=== PATIENT | female | born 1945 | race Caucasian/White ===

== ENCOUNTER 2017-01-15 05:46 | Day surgery (SDC) | payer MEDICARE, BC ==
[2017-01-15] MEDS ORDERED: Dextrose 5%-Lactated Ringers 1,000 ML IV SCH (06:15)
[2017-01-15] MEDS ORDERED: Meropenem 500 MG in Sodium Chloride 0.9% 50 ML IV ONE (07:00)
[2017-01-15] MEDS ORDERED: fentaNYL 100 MCG/2 ML SDV ONE (07:08)
[2017-01-15] MEDS ORDERED: Propofol 200 MG/20 ML SDV ONE ×2 (07:08→07:51)
[2017-01-15] MEDS ORDERED: Midazolam 1 MG/ML 2 ML SDV ONE (07:08)
[2017-01-15 08:54] VITALS: BP 152/77
--- NOTE | 2017-01-19 07:57 | OR ---
DATE OF PROCEDURE: 01/15/2017 PREOPERATIVE DIAGNOSES: 1. Dysphagia, status post gastric bypass. 2. History of colon polyps. POSTOPERATIVE DIAGNOSES: 1. Dysphagia, status post gastric bypass with mild pouch gastritis and suture located at gastrojejunostomy (no stricture or narrowing noted in the area of the distal esophagus or gastrojejunostomy). 2. No recurrent colonic polyps. PROCEDURES: 1. Upper GI endoscopy with:. a. Biopsies of pouch for CLOtest (12210). b. Removal of foreign body (suture) (67120). 2. Flexible colonoscopy. ANESTHESIA: IV sedation. INDICATION FOR PROCEDURE: This is a 71-year-old female presenting for followup colonoscopy. She had numerous polyps removed about a year ago. She also was complaining of some dysphagia in the lower chest area. She is status post gastric bypass. Plan is to proceed with upper GI endoscopy with biopsies and/or dilation, as well as flexible colonoscopy with biopsies or polypectomy as indicated. Potential risks of the procedure, including bleeding and perforation, were discussed, and the patient wishes to proceed. DETAILS OF PROCEDURE: The patient was taken to the operating room and placed in a left lateral decubitus position. IV sedation was administered, after which the upper GI endoscope was passed orally through the length of the esophagus, into the gastric pouch, and from there, through the gastrojejunostomy roughly 20 cm into the Kyle limb. The esophagus and EG junction areas were unremarkable. There is no stricturing of the esophagus and no significant inflammation at the EG junction. The gastric pouch was likewise unremarkable. There was a single old suture eroded through at the gastrojejunostomy, but there was no narrowing or stricturing at any point during the examination. Visualized portion of the Kyle limb was unremarkable. At this point, biopsies were obtained from the gastric pouch and sent for CLOtest for H. pylori, and the suture was then cut and removed in its entirety. The upper GI endoscope was withdrawn with removal of the suture. Attention was then taken to the colonoscopy. Initial digital rectal exam was performed and was unremarkable. Colonoscope was then passed with retroflexion, revealing uncomplicated hemorrhoidal columns. The scope was eventually passed to the cecum. The prep was fair. There was a moderate amount of liquid stool present, which would potentially obscure some small lesions, otherwise no abnormalities were noted. The scope was then withdrawn, the above findings reconfirmed, and the procedure then concluded. PLAN: The plan will be to have the patient to see ANYA Orta, regarding her congestion symptoms. It would appear, by history, some of the dysphagia may be referable to some mucous plugging of the esophagus related to upper respiratory congestion. Otherwise, she will be instructed to eat a little bit more slowly. She is to take some liquids at times. Otherwise, the flexible colonoscopy should be repeated in 5 years. Primo Coffey MD /[id number]
== END 2017-01-15 09:04 | disposition home or self-care (01) ==
LOC: JP.SDS 05:46
PROVIDERS: ATTEND Surgery
DX: Z12.11 Encounter for screening for malignant neoplasm of colon (principal); K29.70 Gastritis, unspecified, without bleeding; Z88.1 Allergy status to other antibiotic agents; Z88.8 Allergy status to other drugs, medicaments and biological substances; Z98.84 Bariatric surgery status; F32.9 Major depressive disorder, single episode, unspecified; K21.9 Gastro-esophageal reflux disease without esophagitis
CPT/HCPCS: 43239; 43247; 87081; G0105; J2185; J2250; J2704; J3010; J7042; J7050

== ENCOUNTER 2018-04-16 12:52 | Emergency (ER) | payer MEDICARE, OTHER ==
[2018-04-16] MEDS ORDERED: Sodium Chloride 0.9% 10 ML Syringe FLUSH PRN (14:08)
[2018-04-16] MEDS ORDERED: cefTRIAXone 2 GM in Sodium Chloride 0.9% 50 ML IV ONE (14:21)
--- NOTE | 2018-04-16 14:29 | EDM.PDOC ---
ED HPI GENERAL MEDICAL PROBLEM - General Chief Complaint: Skin Complaint Stated Complaint: SEEN IN CLINIC YESTERDAY,TOLD TO COME IN IF WORSE Time Seen by Provider: 04/16/18 13:25 Source of Information: Reports: Patient History Limitations: Reports: No Limitations - History of Present Illness INITIAL COMMENTS - FREE TEXT/NARRATIVE: Rosario presents today for complaints of worsening cellulitis to right upper anterior thigh. She reports she was at [facility] yesterday for are of her right anterior thigh with redness that had worsened the previous day. She was given sulfa and has taken two doses as directed. - Related Data Allergies Allergy/AdvReac Type Severity Reaction Status Date / Time Cephalosporins Allergy Cannot Verified 04/16/18 13:15 Remember clindamycin Allergy Cannot Verified 04/16/18 13:15 Remember hydromorphone HCl AdvReac Hallucinati Verified 04/16/18 13:15 [From Dilaudid] ons Home Meds: Home Meds Aspirin [Ecotrin] 1 mg PO DAILY 01/15/16 [History] Cholecalciferol (Vitamin D3) [Vitamin D] 1 cap PO DAILY 01/15/16 [History] Citalopram Hydrobromide [Citalopram HBr] 10 mg PO DAILY 01/15/16 [History] Cyanocobalamin (Vitamin B-12) [Cyanocobalamin Injection] 1 ml IM Q21D 01/15/16 [ History] Iron,Carbonyl/Ascorbic Acid [Vitron-C Tablet] 1 tab PO BID 01/15/16 [History] Multivitamin [Multi-Vitamin Daily] 1 tab PO BID 01/15/16 [History] Omeprazole [Prilosec] 20 mg PO DAILY 01/15/16 [History] Sennosides [Senokot] 2 tab PO QPM 01/15/16 [History] Thiamine [Vitamin B-1] 100 mg PO DAILY 01/15/16 [History] Azelastine [Optivar 0.05% Ophth Soln] 1 drop EYEBOTH BID 01/13/17 [History] B1/B2/Niacin/B12/Protease [B-Complex with B-12 Tablet] 1 each PO BID 01/13/17 [ History] Calcium Carb/Vitamin D3/Vit K1 [Calcium + Vit D & K Chew] 1 each PO TID [History] Sulfamethoxazole/Trimethoprim [Sulfamethoxazole-Tmp Ds Tablet] 1 tab PO BID [History] Past Medical History HEENT History: Reports: Impaired Vision Other HEENT History: wears glasses Gastrointestinal History: Reports: Bowel Obstruction, Colon Polyp, GERD, Hiatal Hernia Genitourinary History: Reports: None 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: Dysfunctional Uterine Bleeding, Musculoskeletal History: Reports: Osteoarthritis Other Musculoskeletal History: Osteomyelitis upper back Neurological History: Reports: None Psychiatric History: Reports: Depression Endocrine/Metabolic History: Reports: Obesity/BMI 30+, Osteopenia Hematologic History: Reports: Anemia, Blood Transfusion(s), Iron Deficiency - Infectious Disease History Infectious Disease History: Reports: Chicken Pox, Shingles - Past Surgical History GI Surgical History: Reports: Bariatric Procedure, Colonoscopy, EGD, Esophageal Dilatation, Cecil Fundoplication, Polypectomy Female Surgical History: Reports: Hysterectomy Endocrine Surgical History: Reports: None Neurological Surgical History: Reports: Discectomy Social & Family History - Tobacco Use Smoking Status *Q: Never Smoker - Caffeine Use Caffeine Use: Reports: None - Recreational Drug Use Recreational Drug Use: No ED ROS GENERAL - Review of Systems Review Of Systems: See Below Constitutional: Denies: Fever, Chills, Malaise, Weakness HEENT: Reports: No Symptoms Respiratory: Reports: No Symptoms Cardiovascular: Reports: No Symptoms Endocrine: Reports: No Symptoms GI/Abdominal: Reports: No Symptoms : Reports: No Symptoms Musculoskeletal: Reports: Other (Mild pain to area of cellulitis of right upper thigh. ) Skin: Reports: Erythema, Other (cellulitis right anterior thigh, area of redness well demarcated and marked by clinic measuring 7cm x 13 cm oval shaped. Area of new redness larger. ) Neurological: Reports: No Symptoms Psychiatric: Reports: No Symptoms Hematologic/Lymphatic: Reports: No Symptoms Immunologic: Reports: No Symptoms ED EXAM, SKIN/RASH Exam: See Below Text/Narrative:: Rosario is an alert and oriented 72 year old female presenting with complaints of worsening redness/cellulitis of the right anterior thigh since yesterday. She reports two days ago she noticed an area that looked like a bug bite to her thigh. She states the area was white then became red around it and spread. She states she went to the clinic, they marked the area and she started taking sulfa. She has a history of allergy to cephalosporins and clindamycin dated back to hospitalization with osteomyelitis in 2003. Exam Limited By: No Limitations General Appearance: Alert, WD/WN, No Apparent Distress Eye Exam: Bilateral Eye: EOMI, Normal Inspection, PERRL Ears: Normal External Exam, Normal Canal, Hearing Grossly Normal, Normal TMs Throat/Mouth: Normal Inspection, Normal Lips, Normal Gums, Normal Oropharynx, Normal Voice, No Airway Compromise Head: Atraumatic, Normocephalic Neck: Normal Inspection, Supple, Non-Tender, Full Range of Motion. No: Lymphadenopathy (R), Lymphadenopathy (L) Respiratory/Chest: No Respiratory Distress, Lungs Clear, Normal Breath Sounds, No Accessory Muscle Use, Chest Non-Tender Cardiovascular: Normal Peripheral Pulses, Regular Rate, Rhythm, No Edema, No Murmur, No Rub Peripheral Pulses: 2+: Radial (L), Radial (R), Dorsalis Pedis (L), Dorsalis Pedis (R) Back Exam: Normal Inspection, Full Range of Motion. No: CVA Tenderness (R), CVA Tenderness (L) Extremities: Normal Range of Motion, No Pedal Edema, Normal Capillary Refill, Increased Warmth, Redness, Other (Right anterior thigh has increased warmth, erythema measuring 11cm x 18cm which has increased from yesterday at 7cm x 13cm. No fluctuance noted or drainable fluid collections. Tenderness with palpation. Full ROM to lower extremities. ) Neurological: Alert, Oriented, CN II-XII Intact, Normal Cognition, Normal Gait, No Motor/Sensory Deficits Psychiatric: Normal Affect, Normal Mood Skin: Dry, Erythema, Increased Warmth, Other (As described above) Location, Skin: Lower Extremity, Right Characteristics: Erythematous, Other (Well demarcated area to right anterior thigh as described above. ) Associated features: Warmth, Tenderness, Swelling, Inflammation. No: Induration , Scaling, Crusting, Weeping Lymphatic: No Adenopathy Course - Vital Signs Last Recorded V/S: Last Vital Signs Temp 37.4 C 04/16/18 15:56 Pulse 75 04/16/18 15:56 Resp 16 04/16/18 15:56 BP 155/74 H 04/16/18 15:56 Pulse Ox 94 L 04/16/18 15:56 - Orders/Labs/Meds Orders: Active Orders 24 hr Category Date Time Status Sodium Chloride 0.9% [Normal Saline] 1,000 ml Med 04/16/18 14:45 Active IV ASDIRECTED Sodium Chloride 0.9% [Saline Flush] Med 04/16/18 14:08 Active 10 ml FLUSH ASDIRECTED PRN Saline Lock Insert [OM.PC] Routine Oth 04/16/18 14:08 Ordered Medication Orders Sodium Chloride (Normal Saline) 1,000 mls @ 1,000 mls/hr IV ASDIRECTED ALYSSA Last Admin: 04/16/18 15:05 Dose: 1,000 mls/hr Sodium Chloride (Saline Flush) 10 ml FLUSH ASDIRECTED PRN PRN Reason: Keep Vein Open Last Admin: 04/16/18 15:05 Dose: 10 ml Labs: Laboratory Tests 04/16/18 04/16/18 Range/Units 13:50 13:50 WBC 8.2 (4.5-11.0) K/uL RBC 4.55 (3.30-5.50) M/uL Hgb 12.9 (12.0-15.0) g/dL Hct 40.8 (36.0-48.0) % MCV 90 (80-98) fL MCH 28 (27-31) pg MCHC 32 (32-36) % Plt Count 233 (150-400) K/uL Neut % (Auto) 76 H (36-66) % Lymph % (Auto) 15 L (24-44) % [place] % (Auto) 9 H (2-6) % Eos % (Auto) 0 L (2-4) % Baso % (Auto) 0 (0-1) % Sodium 133 L (140-148) mmol/L Potassium 4.2 (3.6-5.2) mmol/L Chloride 97 L (100-108) mmol/L Carbon Dioxide 28 (21-32) mmol/L Anion Gap 12.2 (5.0-14.0) mmol/L BUN 16 (7-18) mg/dL Creatinine 1.2 H (0.6-1.0) mg/dL Est Cr Clr Drug Dosing TNP Estimated GFR (MDRD) 44 L (>60) Glucose 96 (74-106) mg/dL Calcium 9.0 (8.5-10.1) mg/dL C-Reactive Protein 6.62 H (0.0-0.3) mg/dL Patient lab work reviewed with Dr. Mcintosh. She is in agreement with plan. Rosario will be given rocephin 2gm IV, Normal Saline 1000ml IV in the emergency room. She will return to the emergency room tomorrow for a recheck. Patient in agreement with plan. Meds: Medications Generic Name Dose Route Start Last Admin Trade Name Freq PRN Reason Stop Dose Admin Sodium Chloride 1,000 mls @ 1,000 mls/hr 04/16/18 14:45 04/16/18 15:05 Normal Saline IV 1,000 mls/hr ASDIRECTED ALYSSA Administration Sodium Chloride 10 ml 04/16/18 14:08 04/16/18 15:05 Saline Flush FLUSH 10 ml ASDIRECTED PRN Administration Keep Vein Open Discontinued Medications Generic Name Dose Route Start Last Admin Trade Name Freq PRN Reason Stop Dose Admin Ceftriaxone Sodium 2 gm/ 50 mls @ 100 mls/hr 04/16/18 14:21 04/16/18 15:05 Sodium Chloride IV 04/16/18 14:50 100 mls/hr ONETIME ONE Administration Departure - Departure Time of Disposition: 16:12 Disposition: Home, Self-Care 01 Condition: Fair Clinical Impression: Cellulitis - Discharge Information *PRESCRIPTION DRUG MONITORING PROGRAM REVIEWED*: Not Applicable *COPY OF PRESCRIPTION DRUG MONITORING REPORT IN PATIENT THUY: Not Applicable Instructions: Cellulitis, Adult Referrals: Raymundo Dillon PA [Primary Care Provider] - Forms: ED Department Discharge Additional Instructions: You have been evaluated and treated for worsening of right anterior thigh cellulitis. You were given rocephin 2 grams IV and normal saline 1000ml IV while in the emergency room. Continue your sulfa antibiotic as directed. Add an additional antibiotic Augmentin 875mg by mouth twice a day for 10 days. Florajen probiotic would also benefit your digestive system. These have both been telephoned to your pharmacy of choice [facility] in [place]. You may use hot packs to the area as directed. Cellulitis care as discussed. Your basic metabolic panel showed decline in renal function and dehydration - this will need follow up with your primary provider in the next 7 days. Work on keeping yourself well hydrated. Return tomorrow for a recheck with Dr. Mcintosh of your cellulitis and any additional IV antibiotics, labs or interventions. Return to the emergency room at any time for worsening, issues or concerns. - My Orders Last 24 Hours: My Active Orders 04/16/18 14:08 Sodium Chloride 0.9% [Saline Flush] 10 ml FLUSH ASDIRECTED PRN Saline Lock Insert [OM.PC] Routine 04/16/18 14:45 Sodium Chloride 0.9% [Normal Saline] 1,000 ml IV ASDIRECTED - Assessment/Plan Last 24 Hours: My Active Orders 04/16/18 14:08 Sodium Chloride 0.9% [Saline Flush] 10 ml FLUSH ASDIRECTED PRN Saline Lock Insert [OM.PC] Routine 04/16/18 14:45 Sodium Chloride 0.9% [Normal Saline] 1,000 ml IV ASDIRECTED Assessment:: Cellulitis right anterior thigh Plan: Patient evaluated and treated for worsening of right anterior thigh cellulitis. She was given rocephin 2 grams IV and normal saline 1000ml IV while in the emergency room. Continue sulfa antibiotic as directed. Add Augmentin 875mg by mouth twice a day for 10 days. Florajen probiotic would also benefit digestive system. Medications telephoned to pharmacy of choice [facility] in [place]. Cellulitis care as discussed. Basic metabolic panel showed decline in renal function and dehydration - this will need follow with primary provider in the next 7 days. Keep well hydrated. Return tomorrow for a recheck with Dr. Mcintosh of cellulitis and any additional IV antibiotics, labs or interventions. Return to the emergency room at any time for worsening, issues or concerns.
[2018-04-16] MEDS ORDERED: Sodium Chloride 0.9% 1,000 ML IV SCH (14:45)
[2018-04-16 15:57] VITALS: BP 155/74
== END 2018-04-16 16:40 | disposition home or self-care (01) ==
LOC: JP.ED 12:52
DX: L03.115 Cellulitis of right lower limb (principal); K21.9 Gastro-esophageal reflux disease without esophagitis; Z88.8 Allergy status to other drugs, medicaments and biological substances; Z88.5 Allergy status to narcotic agent; Z79.899 Other long term (current) drug therapy; Z79.82 Long term (current) use of aspirin
CPT/HCPCS: 36415; 80048; 85025; 86140; 96365; 99284; J0696; J7030; J7050

== ENCOUNTER 2019-03-12 19:21 | Emergency (ER) | payer MEDICARE, OTHER ==
[2019-03-12 19:57] VITALS: BP 179/83
--- NOTE | 2019-03-12 20:36 | EDM.PDOC ---
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 Presents to the ER for dysuria and hematuria. Patient states her hematuria started this afternoon with 2 episodes today. Patient has had some mild diarrhea but it was on the heel risk constipation. Appetite is okay. She denies any fever, chills, sweats, nausea, flank pain or any additional systemic symptoms. She has had a mild cough due to allergy. No headache otherwise feels well. Patient states she has history of one kidney infection when she was very young and possibly one other urinary tract actually in her life. Patient is allergic to cephalosporins and clindamycin. She has tolerated other classes of antibiotics without difficulty. - Related Data Allergies Allergy/AdvReac Type Severity Reaction Status Date / Time Cephalosporins Allergy Cannot Verified 03/12/19 19:49 Remember clindamycin Allergy Cannot Verified 03/12/19 19:49 Remember hydromorphone HCl AdvReac Hallucinati Verified 03/12/19 19:49 [From Dilaudid] ons Home Meds: Home Meds Aspirin [Ecotrin EC] 1 mg PO DAILY 01/15/16 [History] Cholecalciferol (Vitamin D3) [Vitamin D] 1 cap PO DAILY 01/15/16 [History] Citalopram Hydrobromide [Citalopram HBr] 10 mg PO DAILY 01/15/16 [History] Cyanocobalamin (Vitamin B-12) [Cyanocobalamin Injection] 1 ml IM Q21D 01/15/16 [ History] Iron,Carbonyl/Ascorbic Acid [Vitron-C Tablet] 1 tab PO BID 01/15/16 [History] Multivitamin [Multi-Vitamin Daily] 1 tab PO BID 01/15/16 [History] Omeprazole [Prilosec] 20 mg PO DAILY 01/15/16 [History] Sennosides [Senokot] 2 tab PO QPM 01/15/16 [History] Thiamine [Vitamin B-1] 100 mg PO DAILY 01/15/16 [History] B1/B2/Niacin/B12/Protease [B-Complex with B-12 Tablet] 1 each PO BID 01/13/17 [ History] Calcium Carb/Vitamin D3/Vit K1 [Calcium + Vit D & K Chew] 1 each PO TID [History] Sulfamethoxazole/Trimethoprim [Bactrim Ds Tablet] 1 each PO BID 5 Days #10 tablet 03/12/19 [Rx] Past Medical History HEENT History: Reports: Impaired Vision Other HEENT History: wears glasses Gastrointestinal History: Reports: Bowel Obstruction, Colon Polyp, GERD, Hiatal Hernia Genitourinary History: Reports: None 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, Musculoskeletal History: Reports: Osteoarthritis Other Musculoskeletal History: Osteomyelitis upper back Neurological History: Reports: None Psychiatric History: Reports: Depression Endocrine/Metabolic History: Reports: Obesity/BMI 30+, Osteopenia Hematologic History: Reports: Anemia, Blood Transfusion(s), Iron Deficiency - Infectious Disease History Infectious Disease History: Reports: Chicken Pox, Shingles - Past Surgical History GI Surgical History: Reports: Bariatric Procedure, Colonoscopy, EGD, Esophageal Dilatation, Cecil Fundoplication, Polypectomy Female Surgical History: Reports: Hysterectomy Endocrine Surgical History: Reports: None Neurological Surgical History: Reports: Discectomy Social & Family History - Tobacco Use Smoking Status *Q: Never Smoker - Caffeine Use Caffeine Use: Reports: None ED ROS GENERAL - Review of Systems Review Of Systems: ROS reveals no pertinent complaints other than HPI. ED EXAM, RENAL/ - Physical Exam Exam: See Below Exam Limited By: No Limitations General Appearance: Alert, WD/WN, No Apparent Distress Ears: Normal External Exam, Hearing Grossly Normal Nose: Normal Inspection, Normal Mucosa, No Blood Head: Atraumatic, Normocephalic Neck: Normal Inspection, Supple, Full Range of Motion Respiratory/Chest: No Respiratory Distress, Lungs Clear, Normal Breath Sounds Cardiovascular: Normal Peripheral Pulses, Regular Rate, Rhythm GI/Abdominal: Normal Bowel Sounds, Soft, Non-Tender, No Organomegaly Back Exam: No: CVA Tenderness (R), CVA Tenderness (L) Neurological: Alert, Oriented, CN II-XII Intact, Normal Cognition, Normal Gait, Normal Reflexes, No Motor/Sensory Deficits Psychiatric: Normal Affect, Normal Mood Skin Exam: Warm, Dry, Intact, Normal Color, No Rash Course - Vital Signs Last Recorded V/S: Last Vital Signs Temp 35.6 C 03/12/19 19:54 Pulse 62 03/12/19 19:54 Resp 14 03/12/19 19:54 BP 179/83 H 03/12/19 19:54 Pulse Ox 98 03/12/19 19:54 - Orders/Labs/Meds Orders: Active Orders 24 hr Category Date Time Status CULTURE URINE [RM] Stat Lab 03/12/19 19:50 Received Labs: Laboratory Tests 03/12/19 Range/Units 19:50 Urine Color Red Urine Appearance Slightly cloudy Urine pH 5.0 (4.5-8.0) Ur Specific [place] 1.015 (1.008-1.030) Urine Protein 30 H (NEGATIVE) mg/dL Urine Glucose (UA) Normal (NEGATIVE) mg/dL Urine Ketones Negative (NEGATIVE) mg/dL Urine Occult Blood Large (NEGATIVE) Urine Nitrite Negative (NEGATIVE) Urine Bilirubin Negative (NEGATIVE) Urine Urobilinogen Normal (NORMAL) mg/dL Ur Leukocyte Esterase Moderate (NEGATIVE) Urine RBC Semi-packed H (0-5) Urine WBC 20-30 H (0-5) Ur Epithelial Cells Moderate Amorphous Sediment Not seen Urine Bacteria Moderate Urine Mucus Not seen Departure - Departure Time of Disposition: 20:40 Disposition: Home, Self-Care 01 Clinical Impression: UTI, Urinary tract infectious disease, Hematuria due to cystitis - Discharge Information Prescriptions: Sulfamethoxazole/Trimethoprim [Bactrim Ds Tablet] 1 each PO BID 5 Days #10 tablet Instructions: Urine Protein Test, Urinary Tract Infection, Adult, Urine Culture and Sensitivity Testing, Hematuria, Adult Referrals: Syl Sloan PA-C [Primary Care Provider] - Forms: ED Department Discharge Additional Instructions: 1. Increase fluid intake. 2. Bactrim DS BID x 5 days until gone. 3. Urine Culture ordered and pending, talk to PCPabout results in 3-5 days to ensure antibiotic will adequately treat infection. 4. Tylenol 500-1000mg every 8 hors as needed if fever/pain. 5. Return to ER if symptoms, not improving in 2-3 days, nausea, fever or flank pain. - Problem List & Annotations (1) Hematuria due to cystitis SNOMED Code(s): 445927834444377 Code(s): N30.91 - CYSTITIS, UNSPECIFIED WITH HEMATURIA Status: Acute (2) UTI, Urinary tract infectious disease SNOMED Code(s): 12984166 Code(s): N39.0 - URINARY TRACT INFECTION, SITE NOT SPECIFIED Status: Acute - My Orders Last 24 Hours: My Active Orders 03/12/19 19:50 CULTURE URINE [RM] Stat - Assessment/Plan Last 24 Hours: My Active Orders 03/12/19 19:50 CULTURE URINE [RM] Stat Plan: 1. Increase fluid intake. 2. Bactrim DS BID x 5 days until gone. 3. Urine Culture ordered and pending, talk to PCPabout results in 3-5 days to ensure antibiotic will adequately treat infection. 4. Tylenol 500-1000mg every 8 hors as needed if fever/pain. 5. Return to ER if symptoms, not improving in 2-3 days, nausea, fever or flank pain.
== END 2019-03-12 20:56 | disposition home or self-care (01) ==
LOC: JP.ED 19:21
DX: N30.91 Cystitis, unspecified with hematuria (principal); K21.9 Gastro-esophageal reflux disease without esophagitis; M19.90 Unspecified osteoarthritis, unspecified site; E66.9 Obesity, unspecified; F32.9 Major depressive disorder, single episode, unspecified; D64.9 Anemia, unspecified; Z98.84 Bariatric surgery status; Z79.82 Long term (current) use of aspirin; Z79.899 Other long term (current) drug therapy; Z90.710 Acquired absence of both cervix and uterus; Z88.1 Allergy status to other antibiotic agents; Z88.6 Allergy status to analgesic agent
CPT/HCPCS: 81001; 87086; 87088; 87186; 99283

== ENCOUNTER 2020-06-13 07:00 | Day surgery (SDC) | payer MEDICARE, OTHER ==
[2020-06-13] MEDS ORDERED: Sodium Chloride 0.9% 10 ML Syringe FLUSH PRN (08:00)
[2020-06-13 08:52] VITALS: BP 171/80; PULSE 60
--- NOTE | 2020-06-13 15:11 | OR ---
DATE OF PROCEDURE: 06/13/2020 SURGEON: Renee Barroso MD POSTOPERATIVE CARE: Postoperative care will be provided mainly at the [address] [place] [address] [facility] in conjunction with [facility]. PREOPERATIVE DIAGNOSIS: Cataract, left eye. POSTOPERATIVE DIAGNOSIS: Cataract, left eye. PROCEDURES: Cataract extraction, phacoemulsification with intraocular lens placement, left eye. ANESTHESIA: Topical and intracameral. ESTIMATED BLOOD LOSS: Minimal. COMPLICATIONS: None. PATHOLOGY SPECIMENS: None. SURGICAL FINDINGS: None. INDICATION FOR PROCEDURE: The patient is a 74-year-old female with history of a visually significant cataract in the left eye, which interfered with activities of daily living. This consisted of a nuclear sclerosis cataract. Following careful discussion of the risks, benefits and alternatives to cataract extraction with intraocular lens placement including blindness and , the patient elected to proceed, and informed, written consent was obtained prior to the procedure. DESCRIPTION OF THE PROCEDURE: The patient was previously identified, and a moris placed above the left eye. All sources, including the patient, indicated that the left eye was the correct eye. The patient was subsequently taken to the operating room where standard monitors were applied. The patient was then prepped and draped in the usual sterile fashion for ophthalmic surgery. Attention was first directed at the 12 o'clock position where a paracentesis port was fashioned. Shugar solution followed by Viscoat was instilled into the eye. Attention was then directed to the 8:30 position where a triplanar incision was made in a near-clear manner using a keratome. A continuous capsulorrhexis was then made using a combination of the cystotome and Utrata forceps. Hydrodissection was achieved using a balanced salt solution, and the lens rotated nicely. Phacoemulsification was then done using a modified [id number] technique without complication. Phaco time was 6.36 CDE. The remaining cortex was removed using the irrigation/aspiration handpiece. Provisc was then instilled into the eye. A Technis lens, model , at 21.0 diopters was then placed in the capsular bag using an [place] injector. The remaining viscoelastic was removed using the irrigation/aspiration forceps. All wounds were then checked and found to be watertight. The lid speculum and drapes were removed. Maxitrol ointment was placed in the patient's left eye, and the eye was shielded. The patient tolerated the procedure well. The patient was instructed to follow up tomorrow. All needle and sponge counts were correct at the end of the procedure. Renee Barroso MD /[id number]
== END 2020-06-13 09:10 | disposition home or self-care (01) ==
LOC: JP.SDS 07:00
PROVIDERS: ATTEND Ophthalmology
DX: H25.12 Age-related nuclear cataract, left eye (principal); E66.9 Obesity, unspecified; K21.9 Gastro-esophageal reflux disease without esophagitis; F32.9 Major depressive disorder, single episode, unspecified; F41.9 Anxiety disorder, unspecified; N18.9 Chronic kidney disease, unspecified; Z88.8 Allergy status to other drugs, medicaments and biological substances; Z68.39 Body mass index [BMI] 39.0-39.9, adult
CPT/HCPCS: V2632

== ENCOUNTER 2020-06-27 07:30 | Day surgery (SDC) | payer MEDICARE, OTHER ==
[~2020-06-27 07:30] MED LIST: Sodium Chloride 0.9% 10 ML Syringe FLUSH PRN
[2020-06-27 09:30] VITALS: BP 162/81; PULSE 61
--- NOTE | 2020-06-27 11:44 | OR ---
DATE OF PROCEDURE: 06/27/2020 SURGEON: Renee Barroso MD POSTOPERATIVE CARE: Postoperative care will be provided mainly at the [address] [place] [address] [facility] in conjunction with [facility]. PREOPERATIVE DIAGNOSIS: Cataract, right eye. POSTOPERATIVE DIAGNOSIS: Cataract, right eye. PROCEDURE: Phacoemulsification with intraocular lens placement, right eye. ANESTHESIA: Topical and intracameral. ESTIMATED BLOOD LOSS: Minimal. COMPLICATIONS: None. PATHOLOGY SPECIMENS: None. SURGICAL FINDINGS: None. INDICATION FOR PROCEDURE: The patient is a 74-year-old female with history of a visually significant cataract in the right eye, which interfered with activities of daily living. This consisted of a nuclear sclerosis cataract. Following careful discussion of the risks, benefits and alternatives to cataract extraction with intraocular lens placement including blindness and , the patient elected to proceed, and informed, written consent was obtained prior to the procedure. DESCRIPTION OF THE PROCEDURE: The patient was previously identified, and a moris placed above the right eye. All sources, including the patient, indicated that the right eye was the correct eye. The patient was subsequently taken to the operating room where standard monitors were applied. The patient was then prepped and draped in the usual sterile fashion for ophthalmic surgery. Attention was first directed at the 12 o'clock position where a paracentesis port was fashioned. Shugar solution followed by Viscoat was instilled into the eye. Attention was then directed to the 8:30 position where a triplanar incision was made in a near-clear manner using a keratome. A continuous capsulorrhexis was then made using a combination of the cystotome and Utrata forceps. Hydrodissection was achieved using a balanced salt solution, and the lens rotated nicely. Phacoemulsification was then done using a modified [id number] technique without complication. Phaco time was 4.48 CDE. The remaining cortex was removed using the irrigation/aspiration handpiece. Provisc was then instilled into the eye. A Technis lens, model PCB00, at 21.0 diopters was then placed in the capsular bag using an [place] injector. The remaining viscoelastic was removed using the irrigation/aspiration forceps. All wounds were then checked and found to be watertight. The lid speculum and drapes were removed. Maxitrol ointment was placed in the patient's right eye, and the eye was shielded. The patient tolerated the procedure well. The patient was instructed to follow up tomorrow. All needle and sponge counts were correct at the end of the procedure. Renee Barroso MD /[id number]
== END 2020-06-27 09:39 | disposition home or self-care (01) ==
LOC: JP.SDS 07:30
PROVIDERS: ATTEND Ophthalmology
DX: H25.11 Age-related nuclear cataract, right eye (principal)
CPT/HCPCS: V2632